=== PATIENT | female | born 1955 | race Caucasian/White ===

== ENCOUNTER → 2018-12-25 09:08 | Outpatient (CLI) | payer OTHER | END | disposition home or self-care (01) | LOC: LAB 08:57 | DX: R30.0 Dysuria (principal); E55.9 Vitamin D deficiency, unspecified; E78.00 Pure hypercholesterolemia, unspecified; N95.0 Postmenopausal bleeding ==

== ENCOUNTER 2018-12-25 09:40 | Outpatient (CLI) | payer OTHER | END 2018-12-25 09:44 | disposition home or self-care (01) | LOC: MAMO-SONO 09:40 | DX: N60.11 Diffuse cystic mastopathy of right breast (principal); N60.12 Diffuse cystic mastopathy of left breast ==

== ENCOUNTER 2018-12-25 11:52 | Outpatient (CLI) | payer OTHER | END 2018-12-25 12:02 | disposition home or self-care (01) | LOC: NUCLEAR 11:52 | DX: M85.80 Other specified disorders of bone density and structure, unspecified site (principal); M81.0 Age-related osteoporosis without current pathological fracture ==

== ENCOUNTER 2020-02-16 09:21 | Outpatient (CLI) | payer OTHER | END 2020-02-16 10:29 | disposition home or self-care (01) | LOC: MAMO-SONO 09:21 | PROVIDERS: ATTEND Family Medicine | DX: M79.641 Pain in right hand (principal); M79.642 Pain in left hand; M15.0 Primary generalized (osteo)arthritis; Z12.31 Encounter for screening mammogram for malignant neoplasm of breast ==

== ENCOUNTER 2020-02-16 10:51 | Outpatient (CLI) | payer OTHER | END 2020-02-16 11:48 | disposition home or self-care (01) | LOC: NUCLEAR 10:51 | PROVIDERS: ATTEND Family Medicine | DX: M81.0 Age-related osteoporosis without current pathological fracture (principal) ==

== ENCOUNTER → 2020-02-16 14:22 | Outpatient (CLI) | payer OTHER | END | disposition home or self-care (01) | LOC: LAB | PROVIDERS: ATTEND Family Medicine | DX: M15.0 Primary generalized (osteo)arthritis (principal); E11.9 Type 2 diabetes mellitus without complications; E78.2 Mixed hyperlipidemia; Z13.1 Encounter for screening for diabetes mellitus; E55.9 Vitamin D deficiency, unspecified; Z13.220 Encounter for screening for lipoid disorders; Z12.11 Encounter for screening for malignant neoplasm of colon; Z13.6 Encounter for screening for cardiovascular disorders ==

== ENCOUNTER 2022-01-09 08:58 | Outpatient (CLI) | payer OTHER | END 2022-01-09 08:59 | disposition home or self-care (01) | LOC: LAB 08:58 | PROVIDERS: ATTEND Specialist | DX: R05.9 Cough, unspecified (principal); U07.1 COVID-19 ==

== ENCOUNTER 2022-01-09 09:03 | Outpatient (CLI) | payer OTHER | END 2022-01-09 09:14 | disposition home or self-care (01) | LOC: TOM 09:03 | PROVIDERS: ATTEND Specialist | DX: U07.1 COVID-19 (principal) ==

== ENCOUNTER → 2022-03-07 | Emergency (ER) | payer OTHER | END | disposition left against medical advice (07) | LOC: ER 20:09 | DX: Z53.21 Procedure and treatment not carried out due to patient leaving prior to being seen by health care provider (principal) ==

== ENCOUNTER 2023-02-24 11:35 | Outpatient (CLI) | payer OTHER | END 2023-02-24 11:36 | disposition home or self-care (01) | LOC: RAD 11:35 | DX: I70.0 Atherosclerosis of aorta (principal); Z12.31 Encounter for screening mammogram for malignant neoplasm of breast ==

== ENCOUNTER 2023-02-24 13:08 | Outpatient (CLI) | payer OTHER | END 2023-02-24 13:09 | disposition home or self-care (01) | LOC: NUCLEAR 13:08 | DX: M81.0 Age-related osteoporosis without current pathological fracture (principal) ==

== ENCOUNTER → 2024-07-14 15:36 | Outpatient (CLI) | payer OTHER ==
[2024-07-14 10:23] LABS: ob NEGATIVE (NEGATIVE)
[2024-07-14 10:25] LABS: URINE APPEARANCE Clear; URINE BILIRRUBIN Negative (NEGATIVE); URINE BLOOD Negative; URINE COLOR Yellow; URINE GLUCOSE Negative (NEGATIVE); URINE KETONE Negative (NEGATIVE); URINE LEUKOCYTE Trace; URINE NITRATE Negative; URINE PROTEIN Negative (NEGATIVE); URINE UROBILINOGEN 0.2 E.U./dl
[2024-07-14 10:27] LABS: HEMATOCRIT 43.2 % (36.0-45.00); HEMOGLOBIN 14.6 g/dL (12.0-15.00); MEAN CELL VOLUME 95.4 fL (80.00-100.00); MEAN CORPUSCULAR HEMOGLOBIN 32.3 pg (27.00-32.0); MEAN CORPUSCULAR HGB CONC 33.8 g/dl (32.0-36.0); PLATELET COUNT 247 K/uL (150-450); RED BLOOD COUNT 4.53 M/uL (4.00-6.00); RED CELL DISTRIBUTION WIDTH 13.4 % (11.5-14.5)
[2024-07-14 10:29] LABS: URINE BACTERIA 6.1 uL (0.0-1933); URINE EPITHELIAL CELLS 3.6 uL (0.0-38.8); URINE RBC 6.6 uL (0.0-20.8)
[2024-07-14 10:45] LABS: INR 1.05; PARTIAL THROMBOPLASTIN TIME 34.1 SECONDS (22.0-34.0); PROTHROMBIN TIME 11.4 SECONDS (9.0-11.5)
[2024-07-14 11:55] LABS: ALBUMIN 3.6 gm/dL (3.4-5.0); BILIRUBIN TOTAL 0.53 mg/dL (0.3-1.2); CHOL HDL RATIO 2.8 (0-5.0); CREATININE SERUM 0.77 mg/dL (0.55-1.02); GLOBULINA 2.9 G/DL (2.4-3.5); POTASSIUM 4.24 mEq/L (3.5-5.1); T4 TOTAL 8.57 UG/DL (4.8-13.9); TOTAL PROTEIN 6.5 gm/dL (6.4-8.2); TSH 2.45 uIU/mL (0.358-3.74)
== END | disposition home or self-care (01) ==
LOC: LAB 09:08
DX: E55.9 Vitamin D deficiency, unspecified (principal); E03.9 Hypothyroidism, unspecified; R73.01 Impaired fasting glucose; N39.0 Urinary tract infection, site not specified; D64.9 Anemia, unspecified; E78.01 Familial hypercholesterolemia; Z14.01 Asymptomatic hemophilia A carrier; Z12.11 Encounter for screening for malignant neoplasm of colon; I10 Essential (primary) hypertension; E78.00 Pure hypercholesterolemia, unspecified; R63.4 Abnormal weight loss; K92.1 Melena

== ENCOUNTER 2024-07-14 15:51 | Outpatient (CLI) | payer OTHER | END 2024-07-14 15:52 | disposition home or self-care (01) | LOC: MAMO-SONO 15:51 | DX: N60.11 Diffuse cystic mastopathy of right breast (principal); N60.12 Diffuse cystic mastopathy of left breast; Z12.31 Encounter for screening mammogram for malignant neoplasm of breast ==

== ENCOUNTER 2025-05-20 11:39 | Outpatient (CLI) | payer OTHER | END 2025-05-20 11:42 | disposition home or self-care (01) | LOC: RAD 11:39 | DX: M79.651 Pain in right thigh (principal); M25.551 Pain in right hip; M99.01 Segmental and somatic dysfunction of cervical region; M99.02 Segmental and somatic dysfunction of thoracic region; M99.03 Segmental and somatic dysfunction of lumbar region; M99.04 Segmental and somatic dysfunction of sacral region; M99.05 Segmental and somatic dysfunction of pelvic region ==

== ENCOUNTER 2025-06-17 10:28 | Outpatient (CLI) | payer OTHER | END 2025-06-17 10:29 | disposition home or self-care (01) | LOC: NUCLEAR 10:28 | DX: M81.0 Age-related osteoporosis without current pathological fracture (principal) ==